=== PATIENT | male | born 2000 | race African-American/Black ===

== ENCOUNTER 2020-04-30 11:45 | Emergency (ER) | payer BC, SELFPAY ==
--- NOTE | ~2020-04-30 | XR_ITS ---
EXAMINATION: XR knee LT 3V EXAM DATE: 04/30/2020 12:43 INDICATION: Pain To Kneecap Plays Sports Acute Pain, Popping . TECHNIQUE: Three projections of the left knee. There is no prior study for comparison. FINDINGS: No evidence osteochondral defect or joint body in the left knee joint. There are no acute fractures or dislocations identified. There is no subcutaneous gas. The soft tissue is unremarkabl e. There are no radiopaque foreign bodies. No joint effusion. IMPRESSION: 1. Unremarkable XR knee LT 3V exam. Reviewed, dictated and finalized at location A. UME SHOP MANAGER
[2020-04-30 12:07] VITALS: BP 107/60; PULSE 66; RESP 20; TEMP 36.7; O2SAT 98
[2020-04-30] MEDS: IBUPROFEN 600 MG TABLET PO (13:07)
--- NOTE | 2020-04-30 13:18 | ED.LOWEXIN ---
HPI - Extremity Injury (Lower) General Chief Complaint: Extremity Injury, Lower Stated Complaint: left knee pain Time Seen by Provider: 04/30/20 12:25 Source: patient Mode of arrival: ambulatory Limitations: no limitations History of Present Illness HPI Narrative: This is a 19-year-old male that presents the emergency department for left knee pain x4 days. No known injury or trauma. Reports pain is in the anterior knee. Worse with weightbearing and bending the knee. Relieved with rest and elevation. Denies decreased range of motion or numbness. Related Data Home Medications Medication Instructions Recorded Confirmed No Home Medications 04/30/20 04/30/20 Allergies Allergy/AdvReac Type Severity Reaction Status Date / Time No Known Allergies Allergy Unknown Verified 04/30/20 12:57 Review of Systems Review of Systems: Narrative: CONSTITUTIONAL: Denies fever SKIN: Denies rash MUSCULOSKELETAL: Reports joint pain, and myalgia. NEUROLOGIC: Denies numbness, or weakness. All systems reviewed & are unremarkable except as noted in HPI and below PMFSH Past Medical History Medical History (Updated 04/30/20 @ 13:31 by Leandra Pena PA-C) History of ADHD Social History Social History (Updated 04/30/20 @ 13:28 by Leandra Pena PA-C) Substance use: current Substance use type: marijuana Exam Narrative: Exam Narrative: GENERAL: Well-appearing, well-nourished, and in no acute distress. HEAD: Normocephalic, atraumatic. EYES: EOMI. EXTREMITIES: Normal range of motion. No edema, erythema or obvious deformity. Normal DP pulses. Normal sensation SKIN: Warm, dry, no rash. NEURO: No focal deficits. Alert and oriented x3. PSYCH: Normal mood and affect Course Vital Signs Vital signs: Vital Signs Temperature 98.1 F 04/30/20 12:07 Pulse Rate 66 04/30/20 12:07 Respiratory Rate 20 04/30/20 12:07 Blood Pressure 107/60 04/30/20 12:07 Pulse Oximetry 98 04/30/20 12:07 Temperature 98.1 F 04/30/20 12:07 Pulse Rate 66 04/30/20 12:07 Respiratory Rate 20 04/30/20 12:07 Blood Pressure 107/60 04/30/20 12:07 Pulse Oximetry 98 04/30/20 12:07 MDM - Extremity Injury (Lower) MDM Narrative Medical decision making narrative: Patient presents the emergency department for left knee pain x4 days. No known injury or trauma. Patient is neurovascularly intact. Left knee x-rays without acute findings. Patient instructed to rest, ice and take [id number] pain medication as needed. He will be given orthopedics for follow-up. He was given warnings to return to the ER Imaging Data Radiologist's impression: ITS Impressions Knee X-Ray 04/30/20 12:51 IMPRESSION: 1. Unremarkable XR knee LT 3V exam. Critical Care Time Critical Care Time Critical Care Time: No Discharge Plan Discharge Clinical Impression: Acute pain of left knee Patient Disposition: Home, Self-Care Condition: Stable Instructions: Knee Pain (ED) Additional Instructions: Return to the emergency department if you experience fever, redness and swelling of your leg, or any other symptoms that are concerning to you Wear JAZMIN wrap and use crutches. No weight on the affected leg until able to bear weight without pain. Ice and elevate extremity. Pain medication as needed and directed. Follow up with orthopedics for further care. Prescriptions: No Action No Home Medications RF: 0 Follow-up/Referrals: PHYSICIAN,EMS INSTRUCTOR [Primary Care Provider] - Ryan Angulo MD [Physician] - 1 Week Stand Alone Forms: Work/School Release IP
[2020-04-30 14:01] VITALS: PULSE 60; RESP 12
== END 2020-04-30 13:55 | disposition home or self-care (01) ==
PROVIDERS: Emergency Provider Emergency Medicine
DX: M25.562 Pain in left knee (principal)
CPT/HCPCS: 73562; 99283; A9270

== ENCOUNTER 2020-12-25 22:46 | Emergency (ER) | payer OTHER, BC, SELFPAY ==
--- NOTE | ~2020-12-25 | XR_ITS ---
XR elbow LT min 3V, XR forearm LT 2V 12/25/2020 23:08 Indication: Status post fall. Left elbow and wrist pain. Procedure: 4 views left elbow and 2 views left forearm Comparison: No prior studies for comparison. Findings: No fracture, subluxation or dislocation. No focal soft tissue abnormality. No foreign cielo s. No significant elbow effusion. Impression: 1: No acute fracture. Reviewed, dictated and finalized at location A. Impression: 1: No acute fracture. Impression: 1: No acute fracture.
[2020-12-25 23:17] VITALS: BP 124/79; PULSE 63; RESP 18; TEMP 36.9; O2SAT 98
--- NOTE | 2020-12-25 23:22 | ED.UPPEXIN ---
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 Patient states that he was riding a riding lawnmower and accidentally tripped and fell on his left forearm and elbow. Patient states that he has tough time bending his arm. He denies any other injuries. complaint: injury to: left Onset (ago): hour(s) (6) Other Extremity Injury: Left: elbow and forearm Other injuries: none Handedness: right Place: work Severity: moderate Relieving factors: movement Exacerbating factors: none Context: fall Associated symptoms: denies other symptoms Related Data Allergies Allergy/AdvReac Type Severity Reaction Status Date / Time No Known Allergies Allergy Unknown Verified 04/30/20 12:57 Review of Systems Review of Systems: All systems reviewed & are unremarkable except as noted in HPI and below Constitutional: Constitutional: Reports no additional constitutional complaints Eyes: Eyes: Reports no additional eye complaints Cardiovascular: Cardiovascular: Reports no additional cardiovascular complaints Respiratory: Respiratory: Reports no additional respiratory complaints Gastrointestinal: Gastrointestinal: Reports no additional gastrointestinal complaints Musculoskeletal: Musculoskeletal: Reports as per HPI Neurologic: Reports system reviewed and no additional complaints, except as documented PMFSH Past Medical History Medical History History of ADHD Social History Social History Substance use: current Substance use type: marijuana Exam Narrative: Exam Narrative: GENERAL: Well-appearing, well-nourished, and in no acute distress. Strong smell of marijuana HEAD: Normocephalic, atraumatic. EYES: PERRLA and EOMI. NECK: Supple. CHEST: Clear to auscultation. No respiratory distress. HEART: Regular rate and rhythm. No murmur heard. Normal peripheral pulses. EXTREMITIES: Normal range of motion. No edema. Examination of the left forearm and elbow shows no soft tissue swelling no bruises noted. Painful range of motion SKIN: Warm, dry, no rash. NEURO: No focal deficits. Alert and oriented x3. PSYCH: Normal mood and affect. Course Course Emergency Course: Informed him about his x-ray findings. Advised him to take pain medication as prescribed, follow-up with his primary doctor. Vital Signs Vital signs: Vital Signs Temperature 36.9 C 12/25/20 23:17 Pulse Rate 63 12/25/20 23:17 Respiratory Rate 18 12/25/20 23:17 Blood Pressure 124/79 12/25/20 23:17 Pulse Oximetry 98 12/25/20 23:17 Temperature 36.9 C 12/25/20 23:17 Pulse Rate 63 12/25/20 23:17 Respiratory Rate 18 12/25/20 23:17 Blood Pressure 124/79 12/25/20 23:17 Pulse Oximetry 98 12/25/20 23:17 MDM - Extremity Injury (Upper) Imaging Data Radiologist's impression: ITS Impressions Elbow X-Ray 12/25/20 23:09 Impression: 1: No acute fracture. Forearm X-Ray 12/25/20 23:09 Impression: 1: No acute fracture. Discharge Plan Discharge Clinical Impression: Contusion of elbow and forearm Qualifiers: Encounter type: initial encounter Laterality: left Qualified Code(s): S50.12XA - Contusion of left forearm, initial encounter Patient Disposition: Home, Self-Care Condition: Stable Instructions: Antibiotic Form, Contusion in Adults (ED) Prescriptions: New ibuprofen 600 mg tablet 600 mg PO TID PRN (Reason: pain) Qty: 20 RF: 0 Follow-up/Referrals: PHYSICIAN,TRUST MAIL CLERK [Primary Care Provider] - Arya Rodgers
[2020-12-26 00:06] VITALS: BP 122/71; PULSE 66; RESP 18; O2SAT 100
--- NOTE | 2021-03-13 09:07 | PC.NURSE ---
LATE ENTRY This note is being entered to document information to the patient's record. The following information was omitted on [12/25/20], by [Ramy Middleton]. Injury verified to be on left arm. Incorrectly stated in triage not to be right wrist.
== END 2020-12-26 01:21 | disposition home or self-care (01) ==
LOC: ANHED 12-26 00:05
PROVIDERS: Emergency Provider Family Medicine
DX: S50.12XA Contusion of left forearm, initial encounter (principal); W28.XXXA Contact with powered lawn mower, initial encounter
CPT/HCPCS: 73080; 73090; 99283

== ENCOUNTER 2021-02-14 01:17 | Emergency (ER) | payer BC, SELFPAY ==
[2021-02-14 01:20] VITALS: BP 138/80; PULSE 68; RESP 16; TEMP 37.7; O2SAT 100
[2021-02-14] MEDS: SODIUM CHLORIDE 0.9% IV 1,000 ML 999 ML IV CONT (02:20)
[2021-02-14] MEDS: ACETAMINOPHEN 500 MG TABLET 1000 MG PO (02:20)
[2021-02-14] MEDS: KETOROLAC 15 MG/ML VIAL (*BKC) IV PUSH (02:21)
[2021-02-14 02:22] LABS: Basophils Percent Auto 0.7 % (0.2-1.2); Eosinophils Percent Auto 0.7 % (0-4.4); Hematocrit 45.2 % (42.0-52.0); Hemoglobin 15.1 g/dL (14.0-18.0); Immature Granulocyte Absolute 0.01 K/mm3 (0.00-0.031); Immature Granulocyte Percent A 0.3 % (0-0.5); Immature Platelet Fraction Pct 14.8 % (0.9-11.2); Lymphocytes Absolute Auto 0.56 K/mm3 (0.9-3.2); Lymphocytes Percent Auto 18.5 % (18.3-44.2); Mean Corpuscular HGB Conc 33.4 g/dl (32-36); Mean Corpuscular Hemoglobin 33.9 pg (26-34); Mean Corpuscular Volume 101.6 fl (80-100); Mean Platelet Volume 13.4 fl (7.4-10.4); Monocytes Absolute Auto 0.7 K/mm3 (0.1-0.6); Monocytes Percent Auto 22.2 % (2.6-8.5); Neutrophils Absolute Auto 1.7 K/mm3 (1.3-6.7); Neutrophils Percent Auto 57.6 % (45.5-73.1); Platelet Count Result 127 k/mm3 (150-375); Red Blood Count 4.45 M/mm3 (4.6-6.20)
[2021-02-14 02:30] LABS: Anion Gap 8 mmol/L (8-16); Blood Urea Nitrogen 15 mg/dL (9-20); Calcium 8.7 mg/dL (8.4-10.2); Carbon Dioxide 28 mmol/L (22-30); Chloride 102 mmol/L (98-107); Estimated CRCL calculation 81 ml/min; Estimated Glomerular Filt Rate > 60; Glucose 90 mg/dL (65-110); Potassium 3.7 mmol/L (3.4-5.0); Sodium 138 mmol/L (137-145)
--- NOTE | 2021-02-14 02:47 | ED.HA ---
HPI - Headache General Chief Complaint: Headache Stated Complaint: L wrist pain/ headache/ stuffy nose Time Seen by Provider: 02/14/21 01:39 History of Present Illness HPI Narrative: Patient presents with a headache. Patient reports his headache started today he took ibuprofen which helped his headache and went to bed he woke up and continued to have a headache before it was severe so he came to the ER for evaluation. He denies any trauma denies fevers denies nausea or vomiting. Denies any chest pain or shortness of breath. Denies any changes in vision denies any focal weakness or numbness. Patient is also concerned about his left wrist. He reports he was seen a month or 2 ago but is continued to have pain in his wrist. He has not followed up with anyone regarding his pain. His pain is achy, constant, worse with using his wrist Related Data Allergies Allergy/AdvReac Type Severity Reaction Status Date / Time No Known Allergies Allergy Unknown Verified 04/30/20 12:57 Review of Systems Review of Systems: CONSTITUTIONAL: Denies fever, chills, or sweats. EYES: Denies visual changes, redness, or discharge. ENT: Denies rhinorrhea, congestion, sore throat, or otalgia. CARDIOVASCULAR: Denies chest pain, palpitations, or edema. RESPIRATORY: Denies cough or dyspnea. GASTROINTESTINAL: Denies abdominal pain, nausea, vomiting, or diarrhea. GENITOURINARY: Denies dysuria or hematuria. SKIN: Denies rash or itching. MUSCULOSKELETAL: Reports left wrist pain denies back pain, myalgia. NEUROLOGIC: Reports headache denies numbness, dizziness, or weakness. PSYCHIATRIC: Denies anxiety or depression. PMFSH Past Medical History Medical History History of ADHD Social History Social History Substance use: current Substance use type: marijuana Exam Narrative: GENERAL: Well-appearing, well-nourished, and in no acute distress. HEAD: Normocephalic, atraumatic. EYES: PERRLA and EOMI. ENT: Nares clear, no rhinorrhea or epistaxis. Mucous membranes moist. NECK: Supple. No masses. No JVD CHEST: Clear to auscultation. No respiratory distress. No wheezes rales or rhonchi HEART: Regular rate and rhythm. No murmur heard. Normal peripheral pulses. ABDOMEN: Soft, nontender, nondistended, normal active bowel sounds. EXTREMITIES: Normal range of motion. No edema. SKIN: Warm, dry, no rash. NEURO: Cranial nerves II through XII intact. 5 out of 5 strength in all extremities sensation intact to light touch in all extremities. Alert and oriented x3. PSYCH: Normal mood and affect. Course Reevaluation(s) Reevaluation #1: Patient reports feeling improved. Results and plan reviewed with patient. Patient comfortable with the outpatient plan. Date: 02/14/21 Time: 03:23 Vital Signs Vital signs: Vital Signs Temperature 37.7 C H 02/14/21 01:20 Pulse Rate 68 02/14/21 01:20 Respiratory Rate 16 02/14/21 01:20 Blood Pressure 138/80 02/14/21 01:20 Pulse Oximetry 100 02/14/21 01:20 Temperature 37.7 C H 02/14/21 01:20 Pulse Rate 71 02/14/21 03:32 Respiratory Rate 18 02/14/21 03:32 Blood Pressure 118/74 02/14/21 03:32 Pulse Oximetry 99 02/14/21 03:32 MDM - Headache MDM Narrative Medical decision making narrative: H&P as above, vss, pt looks clinically well, exam without focal neurological deficits, labs clinically unremarkable, additional labs/img considered, symptomatic relief available as needed, patient was treated with Toradol and fluids. On reevaluation pt continues to looks clinically well reports feeling improved. Suspect headache low concern for intracranial hemorrhage, mass, meningitis. plan to tx/monitor as op w/ pcm f/u findings/plan discussed with pt, pt agree/comfortable with plan, return precautions given Lab Data Result diagrams: 02/14/21 02:14 02/14/21 02:14 Labs: Lab Res
[2021-02-14 02:52] VITALS: BP 129/85; PULSE 78; RESP 18; O2SAT 99
[2021-02-14 03:32] VITALS: BP 118/74; PULSE 71; RESP 18; O2SAT 99
== END 2021-02-14 03:35 | disposition home or self-care (01) ==
PROVIDERS: Emergency Provider Emergency Medicine
DX: R51.9 Headache, unspecified (principal)
CPT/HCPCS: 36415; 80048; 85025; 85055; 96361; 96374; 99284; A9270; J1885; J7030

== ENCOUNTER 2022-06-30 13:39 | Emergency (ER) | payer BC, SELFPAY ==
--- NOTE | ~2022-06-30 | XR_ITS ---
EXAM: XR knee RT 3V DATE: 06/30/2022 15:15 HISTORY: lateral pain after playing basketball 3days ago, cant bent . COMPARISON: None available. FINDINGS: Normal mineralization. No fracture or dislocation. No lytic or blastic lesion. Joint space s are maintained. No erosion or periosteal change. Soft tissues within normal limits. Small volume yamil int fluid. IMPRESSION: No acute osseous finding in the right knee. Reviewed, dictated and finalized at location K. ER LICENSE EXAMINER
[2022-06-30 14:31] VITALS: BP 126/74; PULSE 66; RESP 16; TEMP 36.8; O2SAT 100
--- NOTE | 2022-06-30 14:53 | ED.LOWEXIN ---
HPI - Extremity Injury (Lower) General Chief Complaint: Extremity Injury, Lower Stated Complaint: knee pain Time Seen by Provider: 06/30/22 14:36 History of Present Illness HPI Narrative: 22-year-old male presents emergency room for evaluation of right knee pain. States 4 days ago he was playing basketball when he jumped up, landing on his right leg he felt laxity in his right knee. Patient was unable to ambulate following the injury. States he went to [facility] in [place] where they did plain films showing no acute fractures. Patient presents with knee immobilizer and crutches requesting pain medicine. Related Data Allergies Allergy/AdvReac Type Severity Reaction Status Date / Time No Known Allergies Allergy Unknown Verified 04/30/20 12:57 Review of Systems Review of Systems: CONSTITUTIONAL: Denies fever, chills, or sweats. EYES: Denies visual changes, redness, or discharge. ENT: Denies rhinorrhea, congestion, sore throat, or otalgia. CARDIOVASCULAR: Denies chest pain, palpitations, or edema. RESPIRATORY: Denies cough or dyspnea. GASTROINTESTINAL: Denies abdominal pain, nausea, vomiting, or diarrhea. GENITOURINARY: Denies dysuria or hematuria. SKIN: Denies rash or itching. MUSCULOSKELETAL: Reports knee pain NEUROLOGIC: Denies headache, numbness, dizziness, or weakness. PSYCHIATRIC: Denies anxiety or depression. [facility] Past Medical History Medical History History of ADHD Social History Social History Substance use: current Substance use type: marijuana Exam Narrative: GENERAL: Well-appearing, well-nourished, no physical limitations, and in no acute distress. HEAD: Normocephalic, atraumatic. EYES: Conjunctivae normal, PERRLA and EOMI. CHEST: Clear to auscultation. No respiratory distress. No wheezes rales or rhonchi. No tenderness. HEART: Regular rate and rhythm. No murmur heard. Normal peripheral pulses. EXTREMITIES: right knee: +TTP with STS to lateral knee, LROM d/t pain, pain illicited with valgus pressure; negative anterior/posterior drawer tests SKIN: Warm, dry, no rash. No noted wounds NEURO: No focal deficits. Alert and oriented x3. MAEW. CN's II-XI intact bilaterally, normal gait PSYCH: Cooperative. Normal mood and affect. Course Vital Signs Vital signs: Vital Signs Temperature 36.8 C 06/30/22 14:31 Pulse Rate 66 06/30/22 14:31 Respiratory Rate 16 06/30/22 14:31 Blood Pressure 126/74 06/30/22 14:31 Pulse Oximetry 100 06/30/22 14:31 Temperature 36.8 C 06/30/22 14:31 Pulse Rate 66 06/30/22 14:31 Respiratory Rate 16 06/30/22 14:31 Blood Pressure 126/74 06/30/22 14:31 Pulse Oximetry 100 06/30/22 14:31 Discharge Plan Discharge Clinical Impression: Internal derangement of right knee Patient Disposition: Home, Self-Care Condition: Stable Instructions: Antibiotic Form Additional Instructions: Continue wearing the knee immobilizer and using the crutches until you follow-up with Dr. Schmid. Prescriptions: New hydrocodone-acetaminophen 5-325 mg tablet 1 tablet PO Q8H PRN (Reason: pain) Qty: 15 0RF No Action ibuprofen 600 mg tablet 600 mg PO TID PRN (Reason: pain) Qty: 20 0RF Follow-up/Referrals: PHYSICIAN,SAFETY AND HEALTH MANAGER [Non-Staff] - Nicholas Schmid MD [Physician] - Time of Disposition: 15:35
== END 2022-06-30 16:20 | disposition home or self-care (01) ==
PROVIDERS: Emergency Provider Nurse Practitioner Family; PCP Family Medicine
DX: M25.561 Pain in right knee (principal); M23.91 Unspecified internal derangement of right knee; F90.9 Attention-deficit hyperactivity disorder, unspecified type
CPT/HCPCS: 73562; 99283

== ENCOUNTER 2023-11-22 13:42 | Emergency (ER) | payer OTHER, SELFPAY ==
--- NOTE | ~2023-11-22 | XR_ITS ---
EXAMINATION: XR finger 3rd RT min 2V DATE: 11/22/2023 14:05 INDICATION: Right hand third digit injury. TECHNIQUE: 3 views of right hand third digit were obtained. COMPARISON: None. FINDINGS: There is a nondisplaced stellate fracture of tuft of third distal phalanx. Joint spaces are normal. IMPRESSION: 1. Nondisplaced stellate fracture of tuft of third distal phalanx. Reviewed, dictated and finalized at location A.
[2023-11-22 13:52] VITALS: BP 131/94; PULSE 54; RESP 12; TEMP 36.9; O2SAT 100
[2023-11-22 13:54] VITALS: BP 131/94; PULSE 54; RESP 12; TEMP 36.9; O2SAT 100
[2023-11-22] MEDS: IBUPROFEN 400 MG TABLET 800 MG PO (14:17)
--- NOTE | 2023-11-22 14:18 | ED.UPPEXIN ---
HPI - Extremity Injury (Upper) General Chief Complaint: Extremity Injury, Upper Stated Complaint: Right Index Finger Injury Time Seen by Provider: 11/22/23 14:00 Source: patient and RN notes reviewed Mode of arrival: ambulatory Limitations: no limitations History of Present Illness HPI narrative: Patient presents today complaining of an injury to his right 3rd finger. He was at work as a emergency preparedness manager, and went to turn over a Pallet of pavers when it fell onto his finger. Injury occurred approximately 1.5 hours prior to exam. Currently rates his pain 9/10 with no [id number] treatment prior to arrival. Denies numbness or tingling. Related Data Allergies Allergy/AdvReac Type Severity Reaction Status Date / Time No Known Allergies Allergy Unknown Verified 08/05/22 13:21 Review of Systems Review of Systems: CONSTITUTIONAL: Denies body aches, fever, chills, or sweats. EYES: Denies visual changes, redness, or discharge. ENT: Denies rhinorrhea, congestion, sore throat, or otalgia. CARDIOVASCULAR: Denies chest pain, palpitations, or edema. RESPIRATORY: Denies cough or dyspnea. GASTROINTESTINAL: Denies abdominal pain, nausea, vomiting, or diarrhea. GENITOURINARY: Denies dysuria or hematuria. SKIN: Denies rash, itching, or wounds. MUSCULOSKELETAL: Denies back pain, or myalgia.+ right 3rd finger injury NEUROLOGIC: Denies headache, numbness, tingling, or weakness. PSYCH: Denies depression or anxiety. 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 Please see nursing chart for further information. There is no relevant family history pertinent to the presenting complaint Exam Narrative: GENERAL: Well-appearing, well-nourished, and in no acute distress. HEAD: Normocephalic, atraumatic. EYES: EOMI. No redness or drainage. Conjunctivae normal. ENT: Mucous membranes pink and moist. NECK: Normal AROM. CHEST: No respiratory distress. EXTREMITIES: Right 3rd finger: 1 x 0.5 cm blister to the volar aspect of the PIP. Tenderness from the PIP to the distal tip, but more tender to the distal tip. Edema to the distal phalanx. Small subungual hematoma. Distal sensation intact. Capillary refill normal. Range of motion limited due to pain. SKIN: Warm, dry, no rash. Capillary refill normal. NEURO: No focal deficits. Alert and oriented x3. Gait steady. PSYCH: Normal affect. No signs of depression or anxiety. Course Course Level of Care: Express Care Visit Vital Signs Vital signs: Vital Signs Temperature 98.5 F 11/22/23 13:52 Pulse Rate 54 L 11/22/23 13:52 Respiratory Rate 12 11/22/23 13:52 Blood Pressure 131/94 H 11/22/23 13:52 Pulse Oximetry 100 11/22/23 13:52 Oxygen Delivery Room Air 11/22/23 13:52 Temperature 98.5 F 11/22/23 13:54 Pulse Rate 54 L 11/22/23 13:54 Respiratory Rate 12 11/22/23 13:54 Blood Pressure 131/94 H 11/22/23 13:54 Pulse Oximetry 100 11/22/23 13:54 Oxygen Delivery Room Air 11/22/23 13:54 Reviewed Procedures Orthopedic Splinting/Casting Injury #1: Splinting/Casting Date: 11/22/23 Splinting/Casting Time: 14:34 Side: right Splint: prefabricated Pre-Formed: metal foam finger splint Pre-Procedure Neuro Vascular Exam: normal Post-Proc
== END 2023-11-22 14:36 | disposition home or self-care (01) ==
PROVIDERS: Emergency Provider Nurse Practitioner
DX: S62.662A Nondisplaced fracture of distal phalanx of right middle finger, initial encounter for closed fracture (principal); W20.8XXA Other cause of strike by thrown, projected or falling object, initial encounter; Y93.H2 Activity, gardening and landscaping; Y99.0 Civilian activity done for income or pay; F12.90 Cannabis use, unspecified, uncomplicated
CPT/HCPCS: 29130; 73140; 99214; A9270; G0463